=== PATIENT | male | born 1960 | race Asian ===

== ENCOUNTER 2021-11-04 09:14 | Emergency (ER) | payer OTHER, SELFPAY ==
[2021-11-04 09:29] VITALS: BP 116/85; PULSE 109; RESP 16; TEMP 37.2; O2SAT 100
--- NOTE | 2021-11-04 09:31 | ED.ABDPAIN ---
HPI - Abdominal Pain General Chief Complaint: Abdominal Pain Stated Complaint: Abdominal Pain Time Seen by Provider: 11/04/21 09:32 Source: patient and family Mode of arrival: ambulatory Limitations: language barrier History of Present Illness HPI narrative: 61-year-old male with no significant medical history presents with complaint of complaint of left lower quadrant abdominal pain for 2 to 3 days. Back and forth between diarrhea and constipation. States that he has gas, belching. Only recent dietary changes that he started protein shakes. Pain getting progressively worse. No history of diverticulitis. No urinary complaints. Denies fever or chills. Patient speaks Croatian, son is interpreting. All systems reviewed and negative except as noted above. Related Data Home Medications Medication Instructions Recorded Confirmed No Home Medications 11/04/21 11/04/21 Allergies Allergy/AdvReac Type Severity Reaction Status Date / Time No Known Allergies Allergy Verified 11/04/21 09:39 Review of Systems Review of Systems: CONSTITUTIONAL: Denies fever, chills, or sweats. EYES: Denies visual changes, redness, or discharge. ENT: Denies rhinorrhea, congestion, sore throat, or otalgia. CARDIOVASCULAR: Denies chest pain, palpitations, or edema. RESPIRATORY: Denies cough or dyspnea. GASTROINTESTINAL: Reports abdominal pain, nausea, diarrhea, constipation. Denies vomiting. GENITOURINARY: Denies dysuria or hematuria. SKIN: Denies rash or itching. MUSCULOSKELETAL: Denies back pain, joint pain, or myalgia. NEUROLOGIC: Denies headache, numbness, or weakness. PSYCHIATRIC: Denies anxiety or depression. All other systems reviewed are negative, except as documented in HPI. PMFSH Comments At time of signature, agree with nursing past medical, surgical, social and family history. There is no relevant family history pertinent to the presenting complaint. Exam Narrative: GENERAL: This is a well-nourished, well-developed patient, in no apparent distress. HEAD: normocephalic, atraumatic. EYES: PERRL. Sclera clear/white. Vision is grossly intact. EARS: External ears normal NOSE: External nose normal THROAT: Mucous membranes moist NECK: Neck supple, non-tender without lymphadenopathy, masses or thyromegaly. CARDIOVASCULAR: Regular rate and rhythm without murmurs, gallops, or rubs. RESPIRATORY: Clear to auscultation. Breath sounds equal bilaterally. No wheezes, rales, or rhonchi. GASTROINTESTINAL: Abdomen is distended, tenderness to left lower quadrant. Bowel sounds are hyperactive. No guarding. SKIN: warm, Dry, intact with no suspicious lesions or rash, good texture and turgor. NEURO: awake, alert, EXTREMITIES: Normal range of motion. BACK: Nontender without deformity. No CVA tenderness. Course Course Level of Care: Express Care Visit Vital Signs Vital signs: Vital Signs Temperature 37.2 C 11/04/21 09:29 Pulse Rate 109 H 11/04/21 09:29 Respiratory Rate 16 11/04/21 09:29 Blood Pressure 116/85 11/04/21 09:29 Pulse Oximetry 100 11/04/21 09:29 Temperature 37.2 C 11/04/21 09:29 Pulse Rate 109 H 11/04/21 09:29 Respiratory Rate 16 11/04/21 09:29 Blood Pressure 116/85 11/04/21 09:29 Pulse Oximetry 100 11/04/21 09:29 Reviewed Transfer Transfered to: [facility] Transfer rationale: Transfer to [facility] for CT scan, labs, pain control. Patient symptoms concerning for diverticulitis. Accepting physician: Dr. Alfaro. MDM - Abdominal Pain MDM Narrative Medical decision making narrative: Transferring to [facility] for further evaluation of abdominal pain. Differential Diagnosis Differential diagnosis: Likely abdominal pain, constipation, diverticulitis, gastroenteritis and small bowel obstruction Discharge Plan Discharge Clinical Impression: Abdominal pain Patient Disposition: Acute Care Hospital Condition: Stable Prescriptions: No Action No Home
== END 2021-11-04 09:40 | disposition short-term general hospital (02) ==
PROVIDERS: Emergency Provider Nurse Practitioner Family
DX: R10.32 Left lower quadrant pain (principal)
CPT/HCPCS: 99202; G0463